=== PATIENT | female | born 1950 | race Two or more races ===

== ENCOUNTER 2023-06-11 23:14 | Inpatient (IN) | payer MEDICAID, OTHER ==
[~2023-06-11] VITALS: Ht 152.4 cm; Wt 88.6 kg
[2023-06-12 00:30] VITALS: PULSE 80; RESP 20; O2SAT 96
[2023-06-12 01:44] LABS: Basophils # (auto) 0 10 ^3/uL (0-0.2); Basophils % (auto) 0.5 % (0.0-2.0); Eosinophils # (auto) 0.3 10 ^3/uL (0-0.8); Hematocrit 29.1 % (36.0-46.0); Hemoglobin 8.7 g/dL (12.2-16.2); Lymphocytes # (auto) 0.9 10 ^3/uL (0.4-5.4); Lymphocytes % (auto) 12.1 % (10.0-50.0); Mean Corpuscular Hemoglobin 23.7 pg (28.0-32.0); Mean Corpuscular Hgb Conc. 29.8 g/dL (32.0-36.0); Mean Corpuscular Volume 79.5 fL (80.0-100.0); Monocytes # (auto) 0.4 10 ^3/uL (0-1.3); Monocytes % (auto) 6.1 % (0.0-12.0); Neutrophils # (auto) 5.6 10 ^3/uL (1.6-8.6); Neutrophils % (auto) 77.3 % (37.0-80.0); Nucleated Red Blood Cells % 0.1 %; Red Blood Cells 3.66 10^6/uL (4.0-5.20); Red Cell Distribution Width 17.3 % (11.8-14.3); White Blood Cell 7.2 10^3/uL (4.4-10.8)
[2023-06-12] MEDS: FUROSEMIDE 100 MG/10ML VIAL IV ONE (01:48)
[2023-06-12 01:56] LABS: Chloride 105 mmol/L (98-107); Potassium 3.3 mmol/L (3.5-5.1); Sodium 141 mmol/L (136-145)
[2023-06-12 01:57] LABS: Anion Gap 2 (5-15); Carbon Dioxide 34 mmol/L (20-30)
[2023-06-12 01:58] LABS: Calcium 9.4 mg/dL (8.7-10.4)
[2023-06-12 02:03] LABS: BUN/Creatinine Ratio 20.4 (10.0-20.0); Blood Urea Nitrogen 10 mg/dL (9-23); Glucose 92 mg/dL (74-106)
[2023-06-12] MEDS ORDERED: ACETAMINOPHEN 325 MG TAB PO PRN (03:45)
[2023-06-12] MEDS ORDERED: ONDANSETRON HCL 4 MG/2 ML VIAL IV PRN (03:45)
[2023-06-12] MEDS: HYDROcodone-ACET 5/325MG TAB PO PRN (04:54)
[2023-06-12] MEDS: hydrALAZINE HCL 20 MG/ML VL IV PRN (04:55)
[2023-06-12] MEDS ORDERED: NITROGLYCERIN 0.4 MG SL TAB SL PRN (05:15)
[2023-06-12] MEDS ORDERED: MORPHINE SULFATE INJ 2 MG/ml SYRG IV PRN (05:15)
[2023-06-12 05:38] LABS: Amphetamine Screen, Urine Neg (NEGATIVE); Barbiturate Scree,Urine Neg (NEGATIVE); Benzodiazephine Screen, Urine Neg (NEGATIVE); Cannabinoid Screen, Urine Neg (NEGATIVE); Cocaine Screen, Urine Neg (NEGATIVE); Opiate Scree,Urine Neg (NEGATIVE); Phencyclidine Screen, Urine Neg (NEGATIVE)
[2023-06-12 05:51] LABS: Urine Bacteria FEW /hpf (None Seen); Urine Blood Negative /uL (Negative); Urine Clarity Clear (Clear); Urine Color Straw (Yellow); Urine Protein, UAD Negative (Negative); Urine Specific Gravity 1.007 (1.001-1.035); Urine Urobilinogen Normal (Negative); Urine WBC 2 /hpf (0 - 5); Urine pH 7.5 (5.0-9.0)
[2023-06-12 05:52] LABS: Basophils # (auto) 0.1 10 ^3/uL (0-0.2); Eosinophils # (auto) 0.3 10 ^3/uL (0-0.8); Lymphocytes % (auto) 11.4 % (10.0-50.0); Monocytes # (auto) 0.5 10 ^3/uL (0-1.3); Neutrophils # (auto) 6.7 10 ^3/uL (1.6-8.6); White Blood Cell 8.5 10^3/uL (4.4-10.8)
[2023-06-12 05:54] LABS: Basophils % (auto) 0.7 % (0.0-2.0); Eosinophils % (auto) 3.4 % (0.0-7.0); Hemoglobin 8.9 g/dL (12.2-16.2); Mean Corpuscular Hemoglobin 24.4 pg (28.0-32.0); Mean Corpuscular Hgb Conc. 30.8 g/dL (32.0-36.0); Mean Corpuscular Volume 79.3 fL (80.0-100.0); Monocytes % (auto) 6.2 % (0.0-12.0); Neutrophils % (auto) 78.3 % (37.0-80.0); Red Blood Cells 3.66 10^6/uL (4.0-5.20); Red Cell Distribution Width 17.1 % (11.8-14.3)
[2023-06-12] MEDS: SODIUM CHLOR 0.9% PF (SALINE LOCK) 10ML VIAL/SYR IV SCH (06:00)
[2023-06-12 06:03] LABS: Alanine Aminotransferase 10 U/L (7-40); Alkaline Phosphatase 61 U/L (46-116); Anion Gap 3 (5-15); Aspartate Aminotransferase 14 U/L (13-40); BUN/Creatinine Ratio 15.7 (10.0-20.0); Blood Urea Nitrogen 8 mg/dL (9-23); Calcium 9.7 mg/dL (8.7-10.4); Carbon Dioxide 37 mmol/L (20-30); Chloride 100 mmol/L (98-107); Glucose 101 mg/dL (74-106); Potassium 2.9 mmol/L (3.5-5.1); Sodium 140 mmol/L (136-145)
[2023-06-12 06:04] LABS: Bilirubin, Total 0.3 mg/dL (0.2-1.0); Total Protein 6.9 g/dL (5.7-8.2)
[2023-06-12 07:35] VITALS: PULSE 82; RESP 13; O2SAT 98
[2023-06-12] MEDS: ASPirin 81 mg TAB PO SCH (10:25)
[2023-06-12] MEDS: CARVEDILOL 12.5 MG TAB PO SCH (10:25)
[2023-06-12] MEDS: FUROSEMIDE 40 MG/4 ML VIAL IV SCH (10:26)
[2023-06-12] MEDS: POTASSIUM EFFERVESENT TAB 25 MEQ ONE (11:41)
[2023-06-12] MEDS: POTASSIUM CHL 20 Meq TABLET PO ONE ×2 (11:47→13:07)
[2023-06-12 12:59] LABS: Magnesium 1.9 mg/dL (1.6-2.6)
[2023-06-12] MEDS: FUROSEMIDE INJECTION 10 ML ONE (13:03)
[2023-06-12] MEDS: hydrALAZINE HCL 20 MG/ML VL ONE (13:03)
[2023-06-12] MEDS: ASPirin 81 mg TAB ONE (13:04)
[2023-06-12] MEDS: HYDROcodone-ACET 5/325MG TAB ONE ×2 (13:04→13:06)
[2023-06-12] MEDS: FUROSEMIDE 40 MG/4 ML VIAL ONE (13:05)
[2023-06-12] MEDS: CARVEDILOL 12.5 MG TAB ONE (13:05)
[2023-06-12 17:38] VITALS: BP 148/64; PULSE 81; RESP 17; TEMP 97.8; O2SAT 99
[2023-06-12 20:00] VITALS: BP 140/57; PULSE 85; PULSE 89; RESP 20; TEMP 99.2; O2SAT 98
[2023-06-12 21:00] VITALS: BP 140/57; PULSE 89; RESP 20; TEMP 99.2; O2SAT 98
[2023-06-12] MEDS: MORPHINE SULFATE INJ 2 MG/ml SYRG IV ONE (21:34)
[2023-06-12 21:37] VITALS: BP 140/57; PULSE 89; RESP 20; TEMP 99.2
[2023-06-13] VITALS (7 sets, daily range): BP systolic 102–135; BP diastolic 34–56; PULSE 66–85; RESP 18–20; TEMP 98.1–99.4; O2SAT 96–98
[2023-06-13 06:28] LABS: Alkaline Phosphatase 50 U/L (46-116); Aspartate Aminotransferase 13 U/L (13-40); BUN/Creatinine Ratio 19.6 (10.0-20.0); Blood Urea Nitrogen 10 mg/dL (9-23); Calcium 9.3 mg/dL (8.7-10.4); Carbon Dioxide 37 mmol/L (20-30); Chloride 105 mmol/L (98-107); Glucose 100 mg/dL (74-106); Potassium 3.8 mmol/L (3.5-5.1); Sodium 139 mmol/L (136-145)
[2023-06-13 06:29] LABS: Albumin 3.3 g/dL (3.2-4.8); Bilirubin, Total 0.3 mg/dL (0.2-1.0)
[2023-06-13 06:30] LABS: Hemoglobin 8.3 g/dL (12.2-16.2); Mean Corpuscular Hemoglobin 23.8 pg (28.0-32.0); Mean Corpuscular Hgb Conc. 29.9 g/dL (32.0-36.0); Total Protein 5.9 g/dL (5.7-8.2)
[2023-06-13 06:32] LABS: Basophils # (auto) 0.1 10 ^3/uL (0-0.2); Basophils % (auto) 0.7 % (0.0-2.0); Eosinophils # (auto) 0.2 10 ^3/uL (0-0.8); Eosinophils % (auto) 2.7 % (0.0-7.0); Hematocrit 27.6 % (36.0-46.0); Lymphocytes # (auto) 0.9 10 ^3/uL (0.4-5.4); Lymphocytes % (auto) 10.8 % (10.0-50.0); Mean Corpuscular Volume 79.5 fL (80.0-100.0); Monocytes # (auto) 0.6 10 ^3/uL (0-1.3); Monocytes % (auto) 6.9 % (0.0-12.0); Neutrophils # (auto) 6.7 10 ^3/uL (1.6-8.6); Neutrophils % (auto) 78.9 % (37.0-80.0); Red Blood Cells 3.48 10^6/uL (4.0-5.20); Red Cell Distribution Width 17.4 % (11.8-14.3); White Blood Cell 8.5 10^3/uL (4.4-10.8)
[2023-06-13 06:40] LABS: Alanine Aminotransferase < 9 U/L (7-40); Anion Gap -3 (5-15)
[2023-06-13] MEDS ORDERED: ASPI-325 PO (16:37)
[2023-06-13] MEDS ORDERED: CARV-216 PO (16:37)
[2023-06-14] VITALS (8 sets, daily range): BP systolic 102–137; BP diastolic 32–54; PULSE 68–85; RESP 16–21; TEMP 97.9–99.4; O2SAT 93–98
[2023-06-14] MEDS: diphenhdrAMINE HCL 25 MG CAP PO PRN (15:38)
[2023-06-14] MEDS: FLEET ENEMA(ADULT) 135 ML PR ONE (15:38)
[2023-06-14] MEDS: DOCUSATE SOD 100 MG CAP PO PRN (17:08)
[2023-06-15 01:00] VITALS: BP 119/37; PULSE 76; RESP 16; TEMP 98.1; O2SAT 91
[2023-06-15 05:00] VITALS: BP 122/54; PULSE 77; RESP 20; TEMP 98; O2SAT 94
[2023-06-15 08:00] VITALS: PULSE 71; PULSE 75; PULSE 81; RESP 16; RESP 20; TEMP 99.4; O2SAT 97
[2023-06-15 08:42] VITALS: BP 134/50; PULSE 83; RESP 18; TEMP 98.2; O2SAT 97
[2023-06-15 12:56] VITALS: BP 132/56; PULSE 78; RESP 20; TEMP 98.6; O2SAT 97
== END 2023-06-15 18:00 | disposition hospice, home (50) | DRG 194 ==
LOC: ER 23:14 → EDBD 23:14 → TELE 06-12 05:05 → TELE-CENTR 06-12 17:23
PROVIDERS: ADMIT Nurse Practitioner Family; ATTEND Internal Medicine
DX: I11.0 Hypertensive heart disease with heart failure (principal); D64.9 Anemia, unspecified; E66.01 Morbid (severe) obesity due to excess calories; E87.6 Hypokalemia; E11.9 Type 2 diabetes mellitus without complications; I50.23 Acute on chronic systolic (congestive) heart failure; I16.0 Hypertensive urgency; F41.9 Anxiety disorder, unspecified; Z68.38 Body mass index [BMI] 38.0-38.9, adult
CPT/HCPCS: 36415; 71045; 80048; 80053; 80061; 80307; 81001; 83036; 83735; 83880; 84443; 84484; 85025; 86850; 86900; 86901; 93005; 93306; 93970; 96374; 96375; G0378